=== PATIENT | male | born 1980 | race Caucasian/White ===

== ENCOUNTER 2016-09-26 09:48 | Emergency (ER) | payer OTHER ==
--- NOTE | ~2016-09-26 | CR63 ---
[facility] A Service of [facility] / [facility] RADIOLOGY TEXT RESULTS PATIENT: KEY EDUARDO LOCATION: SED : [birth year] UNIT #: [id number] AGE: [address]: Osiel Vickers MD SEX: M ORDER DR: [id number] [place] [id number] E MR#: [id number] Acc #: [id number] NAME: KEY EDUARDO. : 1980 SEX: M STUDY DATE/TIME: 09/26/2016 10:25 UNIT: SED ROOM: STUDY DESCRIPTION: CR Chest 2 View Attending Physician: Osiel Vickers M.D. Ordering Physician: Osiel Vickers M.D. Primary Care Physician: Primary Care Physician No MEDICAL IMAGING REPORT This report is preliminary unless electronic signature is present. EXAM Chest 2 views 09/26/2016 1025 hours HISTORY 36-year-old man who fell into a counter last night complaining of upper right posterior rib pain since last night. COMPARISON None. FINDINGS Upright chest demonstrates normal cardiac, mediastinal and hilar contours. The lungs are clear. There is no pleural effusion or pneumothorax. Thoracic vertebral bodies appear normal. No displaced rib fracture is seen. IMPRESSION No acute findings in the chest. There is no pleural effusion, pneumothorax or displaced rib fracture seen. Dictated by... Valerie Galaviz M.D. THIS IS AN ELECTRONICALLY VERIFIED REPORT Valerie Galaviz M.D. at 09/27/2016 9:30 AM GEORGIE/neto TD: 09/26/2016 14:32 JOB #: [id number] [facility] A Service [facility] RADIOLOGY TEXT RESULTS PATIENT: KEY EDUARDO LOCATION: SED : [birth year] UNIT #: [id number] AGE: [address]: Osiel Vickers MD SEX: M ORDER DR: MEDICAL IMAGING REPORT Page 1 of 1
[~2016-09-26 09:48] MED LIST: ALLEGRA PO; CIPRO PO; FLAGYL PO; LOSARTAN POTASS50 MG PO; TOBREX3.5 GM OP; ZOCOR20 MG PO
[2016-09-26] MEDS ORDERED: NO MEDICATIONS (09:51)
== END 2016-09-26 11:53 | disposition home or self-care (01) ==
LOC: SED 09:48
DX: S20.221A Contusion of right back wall of thorax, initial encounter (principal); F17.200 Nicotine dependence, unspecified, uncomplicated; W01.0XXA Fall on same level from slipping, tripping and stumbling without subsequent striking against object, initial encounter; Y92.830 Public park as the place of occurrence of the external cause
CPT/HCPCS: 71020; 99283